=== PATIENT | female | born 1975 | race Two or more races ===

== ENCOUNTER 2021-10-07 15:34 | Emergency (ER) | payer OTHER ==
[~2021-10-07] VITALS: Ht 167.6 cm; Wt 149.7 kg
[2021-10-07] MEDS ORDERED: FAMOTIDINE40 MG PO (16:21)
[2021-10-07] MEDS ORDERED: JARDIANCE10 MG PO (16:21)
[2021-10-07] MEDS ORDERED: CANDESARTAN CILE4 MG PO (16:21)
[2021-10-07] MEDS ORDERED: SYNTHROID75 MCG PO (16:21)
[2021-10-07] MEDS ORDERED: MONTELUKAST SOD10 MG PO (16:22)
[2021-10-07] MEDS ORDERED: OMEPRAZOLE20 MG PO (16:22)
[2021-10-07] MEDS ORDERED: LAMICTAL200 MG PO (16:22)
[2021-10-07] MEDS ORDERED: ALPRAZOLAM0.25 MG PO (16:22)
[2021-10-07] MEDS ORDERED: SERTRALINE HCL100 MG PO (16:23)
[2021-10-07] MEDS ORDERED: QUETIAPINE FUM300 M1 PO (16:23)
[2021-10-07] MEDS ORDERED: ROSUVASTATIN CA20 MG PO (16:23)
[2021-10-07] MEDS ORDERED: METOPROLOL SUCC50 MG PO (16:24)
== END 2021-10-07 21:02 | disposition home or self-care (01) ==
LOC: ER 15:34
DX: U07.1 COVID-19 (principal); J45.909 Unspecified asthma, uncomplicated